=== PATIENT | female | born 1970 | race Caucasian/White ===

== ENCOUNTER 2021-01-26 06:19 | Emergency (ER) | payer MEDICAID ==
[~2021-01-26] VITALS: Ht 160 cm; Wt 67.9 kg
--- NOTE | 2021-01-26 06:58 | NUR ---
RECEIVED REPORT FROM SANGITA. PT LAYING ON GAR[place] SZYMANSKI, NO NEEDS AT THIS TIME, CALL LIGHT WITHIN REACH.
[2021-01-26 07:38] LABS: MEAN CORPUSCULAR HEMOGLOBIN 24.9 pg (27.0-34.8); MEAN CORPUSCULAR HGB CONC 32.5 g/dL (32.4-35.8); MEAN PLATELET VOLUME 10.2 fL (7.4-10.4); PLATELET COUNT 212 x10^3/uL (130-400); RED BLOOD COUNT 5.28 x10^6/uL (3.82-5.3); RED CELL DISTRIBUTION WIDTH 18.5 % (9.6-15.2)
[2021-01-26 07:44] LABS: ALANINE AMINOTRANSFERASE 23 U/L (12-78); ALBUMIN 3.5 g/dL (3.4-5.0); ANION GAP 14 mmol/L (5-15); CALCIUM 8.7 mg/dL (8.5-10.1); CHLORIDE 107 mmol/L (98-107); CREATININE 0.46 mg/dL (0.55-1.02)
[2021-01-26 07:46] LABS: ALKALINE PHOSPHATASE 96 U/L (45-117); BILIRUBIN,TOTAL 0.6 mg/dL (0.2-1.0); TOTAL PROTEIN 7.6 g/dL (6.4-8.2)
[2021-01-26 07:56] LABS: ACETONE, SERUM Large (80mg/dL) (Negative)
[2021-01-26 08:06] LABS: MD YES
[2021-01-26 08:09] LABS: ANISOCYTOSIS 1+; BAND#(MANUAL) 0.03 x10^3/uL; BANDS%(MANUAL) 1 % (0-7); EOS#(MANUAL) 0.03 x10^3/uL (0.0-0.4); EOS% (MANUAL) 1 % (1-7); LYMPH#(MANUAL) 1.46 x10^3/uL (1-3.4); LYMPHS% (MANUAL) 52 % (22-44); MICROCYTOSIS 1+; MONOS#(MANUAL) 0.11 x10^3/uL (0.3-2.7); MONOS% (MANUAL) 4 % (2-9); SEG#(MANUAL) 1.18 x10^3/uL (1.8-6.8); SEGS% (MANUAL) 42 % (42-75)
[2021-01-26 08:10] LABS: <PLATELET ESTIMATE> ADEQUATE; LARGE PLATELETS 1+
--- NOTE | 2021-01-26 08:29 | NUR ---
PT MOSTLY SLEEPING, NAD, NO NEEDS AT THIS TIME, CALL LIGHT WITHIN REACH.
[2021-01-26] MEDS ORDERED: LACTATED RINGERS 1,000 ML IV ONE (08:30)
[2021-01-26 08:55] LABS: O2 FLOW ROOM AIR L/min; PH, VENOUS 7.319 pH (7.320-7.420)
--- NOTE | 2021-01-26 09:04 | NUR ---
PT CALMLY LAYING ON GURNEY WITH EYES CLOSED, NAD/VSS, COMFORT MEASURES PROVIDED, CALL LIGHT WITHIN REACH.
[2021-01-26 09:05] VITALS: BP 96/51
--- NOTE | 2021-01-26 09:20 | NUR ---
FOOD TRAY GIVEN.
--- NOTE | 2021-01-26 10:04 | NUR ---
Patient given discharge instructions and Rx, they have confirmed that they understand the instructions. Patient ambulatory with steady gait.
== END 2021-01-26 10:06 | disposition home or self-care (01) ==
LOC: ED 07:45
DX: D72.819 Decreased white blood cell count, unspecified (principal); E11.65 Type 2 diabetes mellitus with hyperglycemia; R53.1 Weakness; R42 Dizziness and giddiness
CPT/HCPCS: 80053; 82010; 82803; 82962; 85025; 96360; 99283; J7120

== ENCOUNTER 2021-02-01 02:50 | Inpatient (IN) | payer MEDICAID ==
[~2021-02-01] VITALS: Ht 160 cm; Wt 68.9 kg
[2021-02-01 04:15] LABS: MEAN CORPUSCULAR HEMOGLOBIN 24.7 pg (27.0-34.8); MEAN CORPUSCULAR HGB CONC 31.9 g/dL (32.4-35.8); MEAN PLATELET VOLUME 10.5 fL (7.4-10.4); PLATELET COUNT 174 x10^3/uL (130-400); RED BLOOD COUNT 5.05 x10^6/uL (3.82-5.3); RED CELL DISTRIBUTION WIDTH 18.1 % (9.6-15.2)
[2021-02-01 04:17] LABS: MD YES
[2021-02-01 04:22] LABS: ALANINE AMINOTRANSFERASE 20 U/L (12-78); ALBUMIN 3.3 g/dL (3.4-5.0); ANION GAP 6 mmol/L (5-15); CALCIUM 8.6 mg/dL (8.5-10.1); CHLORIDE 105 mmol/L (98-107); CREATININE 0.63 mg/dL (0.55-1.02)
[2021-02-01 04:24] LABS: ALKALINE PHOSPHATASE 96 U/L (45-117); BILIRUBIN,TOTAL 0.3 mg/dL (0.2-1.0); TOTAL PROTEIN 7.2 g/dL (6.4-8.2)
[2021-02-01] MEDS ORDERED: INSULIN REGULAR 100 UNITS/ML, 3ML VIAL IVPush ONE (04:30)
[2021-02-01] MEDS ORDERED: SODIUM CHLORIDE 0.9% 1,000ML IVBOLUS ONE (04:30)
[2021-02-01 04:48] LABS: BAND#(MANUAL) 0.03 x10^3/uL; BANDS%(MANUAL) 1 % (0-7); BASOS#(MANUAL) 0.05 x10^3/uL (0-0.1); BASOS% (MANUAL) 2 % (0-1); EOS#(MANUAL) 0.13 x10^3/uL (0.0-0.4); EOS% (MANUAL) 5 % (1-7); LYMPH#(MANUAL) 1.66 x10^3/uL (1-3.4); LYMPHS% (MANUAL) 64 % (22-44); MONOS#(MANUAL) 0.18 x10^3/uL (0.3-2.7); MONOS% (MANUAL) 7 % (2-9); SEG#(MANUAL) 0.55 x10^3/uL (1.8-6.8); SEGS% (MANUAL) 21 % (42-75)
[2021-02-01 04:50] LABS: <PLATELET ESTIMATE> ADEQUATE; <PLT MORPHOLOGY> NORMAL PLT MORPH; ANISOCYTOSIS 1+; HYPOCHROMIA 1+; MICROCYTOSIS 1+
[2021-02-01] MEDS ORDERED: INSULIN SINGLE DOSE, ER ONE (05:12)
--- NOTE | 2021-02-01 05:17 | NUR ---
IV placed. Pt calm in bed. Pt medicated per order. Warm blanket given. VSS. Will monitor.
--- NOTE | 2021-02-01 07:16 | NUR ---
PT URINE REQUESTED. PT DOES NOT NEED TO URINATE YET. PT DECLINING STRAIGHT CATH. PT ADVISED THAT URINE NEEDED AND INSTRUCTED ON PROCEDURE. PT ALSO ADVISED TO CALL FOR HELP WHEN READY TO GO AND NURSE WILL ASSIST PT TO BATHROOM FOR SAMPLE.
[2021-02-01] MEDS ORDERED: hydrALAzine 20 MG/ML, 1ML IVPush PRN (07:30)
[2021-02-01] MEDS ORDERED: ACETAMINOPHEN 325 MG TABLET PO PRN (07:30)
[2021-02-01] MEDS: INSULIN LISPRO 100 UNITS/ML, PEN SQ-INSULIN SCH ×4 (07:30→21:14)
[2021-02-01] MEDS ORDERED: POLYETHYLENE GLYCOL 17 GM PACKET PO PRN (07:30)
[2021-02-01 07:56] LABS: INTERNATIONAL NORMALIZED RATIO 1.02 (0.93-1.1); PROTHROMBIN TIME 10.9 Seconds (9.6-11.5)
[2021-02-01 09:17] VITALS: BP 125/81
[2021-02-01] MEDS: ENOXAPARIN 40 MG/0.4 ML SQ SCH (10:33)
[2021-02-01] MEDS: LACTATED RINGERS 1,000 ML IV SCH ×2 (10:34→20:28)
[2021-02-01] MEDS: CEFTRIAXONE PMX 2GM/50ML 50 ML IVPB SCH (11:43)
[2021-02-01 13:37] VITALS: BP 125/82
[2021-02-01 16:28] LABS: MICROSCOPIC NOT IND
[2021-02-01 16:40] LABS: AMPHETAMINE SCREEN, URINE Positive (Negative); BARBITURATE SCREEN, URINE Negative (Negative); BENZODIAZEPINE SCREEN, URINE Negative (Negative); CANNABINOID SCREEN, URINE Negative (Negative); COCAINE SCREEN, URINE Negative (Negative); METHADONE SCREEN, URINE Negative (Negative); OPIATE SCREEN, URINE Negative (Negative)
[2021-02-01] MEDS ORDERED: SITA1TAB5 PO (17:41)
[2021-02-01] MEDS ORDERED: GABA800T5 PO (17:41)
[2021-02-01] MEDS ORDERED: OXYC-380 PO (17:41)
[2021-02-01] MEDS ORDERED: GLIP10TA13 PO (17:41)
[2021-02-01 18:46] VITALS: BP 119/78
[2021-02-01] MEDS: HYDROcodone/APAP 5/325 TABLET PO PRN (19:07)
[2021-02-01] MEDS: GABAPENTIN 400 MG CAPSULE PO SCH (20:36)
[2021-02-02 02:00] VITALS: BP 114/72
[2021-02-02] MEDS: LACTATED RINGERS 1,000 ML IV SCH (03:39)
[2021-02-02 05:01] LABS: MEAN CORPUSCULAR HEMOGLOBIN 24.8 pg (27.0-34.8); MEAN CORPUSCULAR HGB CONC 32.3 g/dL (32.4-35.8); PLATELET COUNT 174 x10^3/uL (130-400); RED BLOOD COUNT 5.03 x10^6/uL (3.82-5.3)
[2021-02-02 05:12] LABS: ALBUMIN 2.5 g/dL (3.4-5.0); ANION GAP 4 mmol/L (5-15); CALCIUM 8.3 mg/dL (8.5-10.1); CHLORIDE 110 mmol/L (98-107)
[2021-02-02 05:19] LABS: ALANINE AMINOTRANSFERASE 15 U/L (12-78); ALKALINE PHOSPHATASE 78 U/L (45-117); BILIRUBIN,TOTAL 0.2 mg/dL (0.2-1.0); CHOL/HDL RATIO 4.2; CHOLESTEROL, TOTAL 118 mg/dL (140-239); HDL CHOL % 24 % (28-40); HDL CHOLESTEROL (DIRECT) 28 mg/dL (40-60); LDL CHOLESTEROL,CALCULATED 59 mg/dL (54-169); LDL/HDL RATIO 2.1 (0.5-3.0); TRIGLYCERIDES 154 mg/dL (50-200); VLDL CHOLESTEROL 31 mg/dL (0-25)
[2021-02-02 06:06] LABS: MD YES
[2021-02-02 06:09] LABS: SEG#(MANUAL) 0.46 x10^3/uL (1.8-6.8); SEGS% (MANUAL) 20 % (42-75)
[2021-02-02 06:10] LABS: ANISOCYTOSIS 1+; BASOS#(MANUAL) 0.02 x10^3/uL (0-0.1); BASOS% (MANUAL) 1 % (0-1); EOS#(MANUAL) 0.16 x10^3/uL (0.0-0.4); EOS% (MANUAL) 7 % (1-7); HYPOCHROMIA 1+; LYMPH#(MANUAL) 1.45 x10^3/uL (1-3.4); LYMPHS% (MANUAL) 63 % (22-44); MICROCYTOSIS 1+; MONOS#(MANUAL) 0.21 x10^3/uL (0.3-2.7); MONOS% (MANUAL) 9 % (2-9)
[2021-02-02 06:11] LABS: <PLATELET ESTIMATE> ADEQUATE; LARGE PLATELETS 1+
[2021-02-02] MEDS ORDERED: MAGNESIUM SULFATE PMX 4GM/100M 100 ML IVPB ONE (07:00)
[2021-02-02 07:17] LABS: HCT (SEDRATE) 38.6 % (34.6-47.8)
[2021-02-02 07:50] VITALS: BP 110/71
[2021-02-02] MEDS ORDERED: CHLORDIAZEPOXIDE 25 MG CAPSULE PO SCH (08:30)
[2021-02-02] MEDS ORDERED: FLUCONAZOLE 100 MG TABLET ONE (08:44)
[2021-02-02] MEDS: INSULIN LISPRO 100 UNITS/ML, PEN SQ-INSULIN SCH ×3 (08:51→16:48)
[2021-02-02] MEDS: GABAPENTIN 400 MG CAPSULE PO SCH ×2 (08:53→16:47)
[2021-02-02] MEDS: HYDROcodone/APAP 5/325 TABLET PO PRN ×3 (08:53→17:53)
[2021-02-02] MEDS ORDERED: THIAMINE 100MG TABLET PO SCH (09:00)
[2021-02-02] MEDS ORDERED: FLUCONAZOLE 50 MG TABLET PO ONE (09:00)
[2021-02-02] MEDS ORDERED: FOLIC ACID 1 MG TABLET PO SCH (09:00)
[2021-02-02] MEDS ORDERED: SENNA/DOCUSATE TABLET ONE (09:59)
[2021-02-02] MEDS: ENOXAPARIN 40 MG/0.4 ML SQ SCH (11:00)
[2021-02-02] MEDS ORDERED: PHENAZOPYRIDINE 200 MG TABLET ONE (13:01)
[2021-02-02] MEDS: PHENAZOPYRIDINE 100 MG TABLET PO SCH ×2 (13:05→16:47)
[2021-02-02 13:51] VITALS: BP 117/63
[2021-02-02] MEDS: CEFTRIAXONE PMX 2GM/50ML 50 ML IVPB SCH (14:30)
== END 2021-02-02 21:21 | disposition left against medical advice (07) | DRG 637 ==
LOC: ED 06:21 → EDIP 06:48 → SUATTDRO 07:11 → 4WST 08:42
PROVIDERS: ADMIT Internal Medicine; ATTEND Hospitalist
DX: E11.65 Type 2 diabetes mellitus with hyperglycemia (principal); G93.41 Metabolic encephalopathy; D70.9 Neutropenia, unspecified; F15.10 Other stimulant abuse, uncomplicated; M06.9 Rheumatoid arthritis, unspecified; R42 Dizziness and giddiness; Z63.8 Other specified problems related to primary support group
CPT/HCPCS: 36415; 70450; 71045; 80053; 80061; 80074; 80307; 80320; 81003; 82607; 82728; 82962; 83036; 83540; 83550; 83605; 83615; 83690; 83735; 84100; 84145; 84443; 85025; 85379; 85610; 85651; 86140; 86592; 86780; 87040; 87491; 87521; 87591; 87806; 93005; 93306; 93356; 96361; 96374; G0378; J0696; J1650; J1815; G0475; G0480; J3475; J7030; J7120; J7512